=== PATIENT | male | born 1985 | race Caucasian/White ===

== ENCOUNTER 2019-01-26 03:51 | Emergency (ER) | payer BC ==
[~2019-01-26] VITALS: Ht 170.2 cm; Wt 74.8 kg
--- NOTE | 2019-01-26 04:05 | NUR ---
PT BIBFRIEND FOR HEART PALPITATIONS 30 MIN PRIOR TO ARRIVAL, PT STATES THAT THE PALPITATIONS WORK HIM UP, AND HE IS FEELING SOB. PT PUT ON THE RANCH HAND AND PULSE OX. PT TACHYCARDIC ON THE MONITOR IN THE 140S, RESPIRATIONS EVEN AND UNLABORED. PT AXO4. PENDING EVAL FROM ER .
--- NOTE | 2019-01-26 04:10 | NUR ---
KASIA DEL REAL AT BEDSIDE.
--- NOTE | 2019-01-26 04:18 | NUR ---
EKG AT BEDSIDE.
[2019-01-26] MEDS ORDERED: ADENOSINE 6 MG/2 ML VIAL ONE ×3 (04:23→04:33)
--- NOTE | 2019-01-26 04:24 | NUR ---
ER MD, 3 RN AND 1 EMT AT BEDSIDE. VERBAL ORDER OF 6MG ADENOSINE IVP. PT HR NON-RESPONSIVE TO MEDICATION. TACHYCARDIC IN THE 140S CONTINUOUS EKG MONITORING.
--- NOTE | 2019-01-26 04:30 | NUR ---
ER MD, 3 RNS AND 1 EMT AT BEDSIDE, VERBAL ORDER OF 12 MG ADENOSINE IVP GIVEN, HR NON-RESPONSIVE TO MEDICATION. CONTINOUS EKG MONITORING.
--- NOTE | 2019-01-26 04:34 | NUR ---
ER MD, 3 RNS AND 1 EMT AT BEDSIDE, VERBAL ORDER OF 18 MG ADENOSINE IVP GIVEN, HR NON-RESPONSIVE TO MEDICATION. CONTINOUS EKG MONITORING.
[2019-01-26] MEDS ORDERED: DILTIAZEM HCL 50 MG IV ONE (04:41)
[2019-01-26 04:55] LABS: BASOPHILS # (AUTO) 0.1 /CMM (0.0-0.2); BASOPHILS % (AUTO) 0.9 % (0.0-2.0); EOSINOPHILS % (AUTO) 3.4 % (0.0-6.0); HEMATOCRIT 46 % (39-51); HEMOGLOBIN 15.6 g/dL (13.5-17.5); LYMPHOCYTES # (AUTO) 4.4 /CMM (0.8-4.8); LYMPHOCYTES % (AUTO) 40.2 % (20.0-44.0); MEAN CORPUSCULAR HGB CONC 34 g/dl (31.0-36.0); MEAN CORPUSCULAR VOLUME 88 fL (80-96); MONOCYTES # (AUTO) 0.9 /CMM (0.1-1.30); MONOCYTES % (AUTO) 8.6 % (2.0-12.0); NEUTROPHILS # (AUTO) 5.1 /CMM (1.8-8.9); NEUTROPHILS % (AUTO) 46.9 % (43.0-81.0); PLATELET COUNT (AUTO) 244 /CMM (150-450); RED BLOOD CELL COUNT(AUTO) 5.15 MIL/uL (4.5-6.0); WHITE BLOOD COUNT (AUTO) 10.9 K/uL (4.3-11.0)
[2019-01-26] MEDS ORDERED: DILTIAZEM HCL 50 MG IV IV ONE ×2 (05:00→06:00)
[2019-01-26] MEDS ORDERED: IV NS 0.9% 1,000 ML BAG IV ONE ×2 (05:00→06:00)
[2019-01-26] MEDS ORDERED: ADENOSINE 6 MG/2 ML VIAL IVP ONE ×3 (05:00)
--- NOTE | 2019-01-26 05:00 | NUR ---
PT RESTING IN BED, TACHYCARDIC ON THE MONITOR. ER AWARE. PT AXO4.
[2019-01-26 05:11] LABS: CALCIUM, SERUM 8.4 mg/dL (8.5-10.1); CREATININE 1.3 mg/dL (0.6-1.3); POTASSIUM 3.5 mmol/L (3.5-5.1)
--- NOTE | 2019-01-26 05:16 | NUR ---
XRAY AT BEDSIDE.
--- NOTE | 2019-01-26 05:45 | NUR ---
PT HYPOTENSIVE ON THE MONITOR, ER AWARE. WILL CARRY OUT ORDERS.
--- NOTE | 2019-01-26 05:47 | NUR ---
CALLED NURSING SHOE REPAIRER APPRENTICEALEXA OUT OF STOCK IN HOSPITAL. AWARE
[2019-01-26] MEDS ORDERED: ENOXAPARIN SODIUM 60 MG/0.6 ML DISP.SYRIN SQ ONE ×2 (05:53→06:00)
[2019-01-26] MEDS ORDERED: APIXABAN 5 MG TABLET PO SCH (06:00)
--- NOTE | 2019-01-26 06:37 | NUR ---
Patient discharged to home in stable condition. Written and verbal after care instructions given. Patient verbalizes understanding of instruction. IV removed. Catheter intact and site benign. Pressure and 4x4 applied to site. No bleeding noted. Pt ambulatory with steady gait. VSS.
[2019-01-26 06:39] VITALS: BP 110/81
== END 2019-01-26 06:40 | disposition home or self-care (01) ==
LOC: ER 03:53
DX: I48.91 Unspecified atrial fibrillation (principal); I38 Endocarditis, valve unspecified; I45.10 Unspecified right bundle-branch block; I44.5 Left posterior fascicular block; R00.0 Tachycardia, unspecified; F17.200 Nicotine dependence, unspecified, uncomplicated
CPT/HCPCS: 36415; 71045; 80048; 83735; 84484; 85025; 93005 ×2; 96372; 96374; 96375; 96376; 99291; J0153 ×3; J1650; J3490; J7030 ×2